=== PATIENT | female | born 1940 | race Caucasian/White ===

== ENCOUNTER → 2018-04-15 | Outpatient (CLI) | payer OTHER ==
[~2018-04-15] MED LIST: MUCINEX600 MG PO; OSEL75CA PO; PROTONIX40 MG PO
== END | disposition home or self-care (01) ==
LOC: NUCLEAR 07:00
DX: I20.9 Angina pectoris, unspecified (principal)
CPT/HCPCS: 78452; 93017; A9500

== ENCOUNTER 2018-07-29 09:00 | Outpatient (CLI) | payer OTHER | END 2018-07-29 09:03 | disposition home or self-care (01) | LOC: SONOGRAMA 09:00 | DX: N28.1 Cyst of kidney, acquired (principal) ==

== ENCOUNTER 2020-12-06 06:10 | Day surgery (SDC) | payer OTHER ==
[~2020-12-06 06:10] MED LIST changes: +SYNTHROID50 MCG PO
== END 2020-12-06 16:30 | disposition home or self-care (01) ==
LOC: CIR.AMB 06:10
PROVIDERS: ATTEND Urology
DX: C67.5 Malignant neoplasm of bladder neck (principal); C67.6 Malignant neoplasm of ureteric orifice

== ENCOUNTER 2021-08-01 10:00 | Outpatient (CLI) | payer OTHER | END 2021-08-04 15:21 | disposition home or self-care (01) | LOC: SONOGRAMA 10:00 | PROVIDERS: ATTEND Urology | DX: K31.1 Adult hypertrophic pyloric stenosis (principal) ==

== ENCOUNTER 2021-08-08 14:47 | Outpatient (CLI) | payer OTHER | END 2021-08-08 14:56 | disposition home or self-care (01) | LOC: RAD 14:47 | PROVIDERS: ATTEND Urology | DX: C67.9 Malignant neoplasm of bladder, unspecified (principal) ==

== ENCOUNTER 2021-08-22 05:43 | Day surgery (SDC) | payer OTHER ==
[~2021-08-22] VITALS: Ht 165.1 cm; Wt 44.5 kg
[~2021-08-22 05:43] MED LIST changes: +GABAPEN PO; +PERCO PO; +TYLEN PO
== END 2021-08-22 13:35 | disposition home or self-care (01) ==
LOC: CIR.AMB 05:43
PROVIDERS: ATTEND Urology
DX: C67.9 Malignant neoplasm of bladder, unspecified (principal); K21.9 Gastro-esophageal reflux disease without esophagitis; Z88.8 Allergy status to other drugs, medicaments and biological substances; F17.210 Nicotine dependence, cigarettes, uncomplicated; E06.3 Autoimmune thyroiditis; Z90.5 Acquired absence of kidney